=== PATIENT | male | born 1965 | race Caucasian/White ===

== ENCOUNTER 2018-08-21 16:07 | Emergency (ER) | payer MEDICAID ==
[2018-08-21 17:32] LABS: BASOPHIL % 0.4 % (0-2); PLATELET COUNT 330 x10^3mcL (130-400); RED CELL DISTRIBUTION WIDTH 13.8 % (11.5-14.5)
[2018-08-21 17:50] LABS: BILIRUBIN TOTAL 0.4 mg/dL (0.20-1.00); CALCIUM 9.3 mg/dL (8.5-10.1); CARBON DIOXIDE 31.8 mmol/L (21-32); POTASSIUM SERUM 4.4 mmol/L (3.5-5.1); T4(THYROXINE) 9.9 ug/dL (4.7-13.3); TOTAL PROTEIN, SERUM 7.7 g/dL (6.4-8.2)
[2018-08-21 18:15] LABS: ALBUMIN 3.2 g/dL (3.4-5.0); CREATININE SERUM 5.3 mg/dL (0.7-1.3)
[2018-08-21 20:26] VITALS: BP 147/79
== END 2018-08-21 20:26 | disposition home or self-care (01) ==
LOC: ED 16:07
PROVIDERS: Emergency Medicine
DX: R10.11 Right upper quadrant pain (principal); R11.2 Nausea with vomiting, unspecified; K76.0 Fatty (change of) liver, not elsewhere classified; E11.22 Type 2 diabetes mellitus with diabetic chronic kidney disease; I12.0 Hypertensive chronic kidney disease with stage 5 chronic kidney disease or end stage renal disease; N18.6 End stage renal disease; Z99.2 Dependence on renal dialysis; Z88.2 Allergy status to sulfonamides; Z88.1 Allergy status to other antibiotic agents; Z90.89 Acquired absence of other organs; J45.909 Unspecified asthma, uncomplicated; Z89.411 Acquired absence of right great toe
CPT/HCPCS: 83880; J1885; J3490; Q0092